=== PATIENT | male | born 1975 | race Caucasian/White ===

== ENCOUNTER 2018-04-01 14:52 | Emergency (ER) | payer BC ==
[~2018-04-01] VITALS: Ht 175.3 cm; Wt 76.0 kg
[2018-04-01] MEDS ORDERED: WELLBUTRIN 100100 MG PO (14:57)
[2018-04-01] MEDS ORDERED: LEXAPRO20 MG PO (15:03)
[2018-04-01 15:22] LABS: ABSOLUTE LYMPHOCYTES 1.7 thou/uL (0.8-5.3); ABSOLUTE MONOCYTES 0.6 thou/uL (0.0-1.2); ABSOLUTE NEUTROPHILS 3.9 thou/uL (1.6-8.1); BASOPHILS 0.6 %; EOSINOPHILS 0.7 %; HEMOGLOBIN 14.9 gm/dL (14.0-18.0); LYMPHOCYTES 26.5 %; MCH 28.1 pg (26.0-34.0); MCHC 33.1 g/dL (28.0-37.0); MONOCYTES 8.9 %; MPV 8.2 fl. (7.2-11.1); NUCLEATED RBCS 0 /100WBC; PLATELET COUNT* 206 thou/uL (150-400); POLYS 63.3 %; RBC 5.29 mil/uL (4.50-6.00); RDW-CV 13.8 % (10.5-14.5); WBC 6.2 thou/uL (4.0-11.0)
[2018-04-01 15:31] LABS: APTT 32.5 Seconds (25.0-31.3)
[2018-04-01 15:35] LABS: ANION GAP 8 mmol/L (7-16); BUN 13 mg/dL (7-18); CALCIUM 8.8 mg/dL (8.5-10.1); CHLORIDE 101 mmol/L (98-107); CO2 28 mmol/L (21-32); GLUCOSE 97 mg/dL (70-99); POTASSIUM 3.4 mmol/L (3.5-5.1); SODIUM 137 mmol/L (136-145)
[2018-04-01 15:54] LABS: ALKALINE PHOSPHATASE 54 U/L (46-116); CK-MB MASS 0.6 ng/mL (<0.5-3.6); LIPASE 112 U/L (73-393); NT-PRO BRAIN NAT PEPTIDE 13 pg/mL (<300); SGOT 20 U/L (15-37); SGPT 33 U/L (30-65); TOTAL BILIRUBIN 0.5 mg/dL (<0.1-1.0); TOTAL PROTEIN 7.8 g/dL (6.4-8.2); TROPONIN-I LEVEL <0.06 ng/mL (<0.06)
[2018-04-01] MEDS ORDERED: NAPROSYN500 MG PO (16:02)
[2018-04-01] MEDS ORDERED: CYCLOBENZAPRINE5 MG PO (16:02)
[2018-04-01 16:10] VITALS: BP 155/99
--- NOTE | 2018-04-01 16:26 | EKG ---
[place] [address] ELECTROCARDIOGRAM REPORT Name: YANIQUEDINAH Navarro Room: [facility]#: [id number] Admission: 04/01/18 Attend Phys: Discharge: 04/01/18 Date of : 71 Report #: [id number] THIS REPORT FOR: //name// [facility] ED Test Date: 2018-04-01 Test Time: 14:57:22 Pat Name: DINAH CHANEL Department: Room: Gender: M Housing Relocation: [place] GROVES : 1975 Requested By: Dominick Lovelace Order Number: [id number] MD: Campos Downing Measurements Intervals [place] Rate: 68 P: 39 WA: 150 QRS: 40 QRSD: 98 T: 26 QT: 395 QTc: 421 Interpretive Statements Sinus rhythm No previous ECG available for comparison Electronically Signed On 04-01-2018 16:26:03 CDT by Campos Downing [email or web address] <ELECTRONICALLY SIGNED> By: Campos Downing MD, [facility] 04/01/18 1626 1457 1457 Campos Downing MD, FACC /EPI
== END 2018-04-01 16:11 | disposition home or self-care (01) ==
LOC: M.ERS 14:52
PROVIDERS: Emergency Medicine
DX: M54.12 Radiculopathy, cervical region (principal); F41.9 Anxiety disorder, unspecified; F32.9 Major depressive disorder, single episode, unspecified; Z88.5 Allergy status to narcotic agent